=== PATIENT | female | born 2000 | race Two or more races ===

== ENCOUNTER 2020-09-19 19:43 | Emergency (ER) | payer MEDICAID, OTHER ==
[~2020-09-19] VITALS: Ht 154.9 cm; Wt 34.0 kg
[2020-09-19] MEDS ORDERED: SODIUM CHLORIDE 0.9% 1,000 ML IV ONE (21:30)
[2020-09-19] MEDS ORDERED: METOCLOPRAMIDE HCL 5MG/ml INJ 2ml VIAL IV ONE (21:30)
[2020-09-19 22:04] LABS: Basophils # (auto) 0 10 ^3/uL (0-0.2); Basophils % (auto) 0.1 % (0.0-2.0); Eosinophils # (auto) 0 10 ^3/uL (0-0.8); Eosinophils % (auto) 0.1 % (0.0-7.0); Hematocrit 36.4 % (36.0-46.0); Hemoglobin 12.6 g/dL (12.2-16.2); Lymphocytes # (auto) 1.2 10 ^3/uL (0.4-5.4); Lymphocytes % (auto) 14.8 % (10.0-50.0); Mean Corpuscular Hgb Conc. 34.7 g/dL (32.0-36.0); Mean Corpuscular Volume 92.3 fL (80.0-100.0); Monocytes # (auto) 0.3 10 ^3/uL (0-1.3); Monocytes % (auto) 3.7 % (0.0-12.0); Neutrophils # (auto) 6.4 10 ^3/uL (1.6-8.6); Neutrophils % (auto) 81.3 % (37.0-80.0); Nucleated Red Blood Cells % 0.1 %; Red Blood Cells 3.95 10^6/uL (4.0-5.20); Red Cell Distribution Width 12.9 % (11.8-14.3); White Blood Cell 7.8 10^3/uL (4.4-10.8)
[2020-09-19 22:21] LABS: Albumin 4.1 g/dL (3.4-5.0); Calcium 8.8 mg/dL (8.5-10.1); Magnesium 2.2 mg/dL (1.6-2.6); Potassium 3.9 mmol/L (3.5-5.1)
[2020-09-19 22:21] LABS: Urine Bacteria FEW /hpf (None Seen); Urine Blood Negative /uL (Negative); Urine Mucus FEW (None Seen); Urine Specific Gravity 1.008 (1.001-1.035); Urine WBC 1 /hpf (0 - 5)
[2020-09-19 22:25] LABS: BUN/Creatinine Ratio 23.4; Bilirubin, Total 0.7 mg/dL (0.2-1.0); Total Protein 7.8 g/dL (6.4-8.2)
[2020-09-20 01:30] VITALS: BP 93/62
== END 2020-09-20 03:36 | disposition home or self-care (01) ==
LOC: ER 19:43
DX: R51.9 Headache, unspecified (principal); R11.2 Nausea with vomiting, unspecified
CPT/HCPCS: 36415; 80053; 81001; 83735; 85025; 96361; 96374; 99283; J2765; J7030